=== PATIENT | female | born 1980 | race Caucasian/White ===

== ENCOUNTER 2022-04-06 14:10 | Emergency (ER) | payer OTHER ==
[~2022-04-06] VITALS: Ht 162.6 cm; Wt 68.0 kg
== END 2022-04-06 19:43 | disposition home or self-care (01) ==
LOC: ER 14:10
DX: K52.9 Noninfective gastroenteritis and colitis, unspecified (principal); E86.0 Dehydration; K51.90 Ulcerative colitis, unspecified, without complications; R11.2 Nausea with vomiting, unspecified; Z88.2 Allergy status to sulfonamides; Z20.822 Contact with and (suspected) exposure to COVID-19